=== PATIENT | female | born 1960 | race Caucasian/White ===

== ENCOUNTER → 2017-01-23 | Outpatient (CLI) | payer OTHER ==
[~2017-01-23] MED LIST: ESTRACE0.5 MG PO; IBUPROFEN 200200 M1 PO; PROVERA2.5 MG PO; VENTOLIN HFA 1818 GM INH
== END ==
LOC: RAD 01:33
DX: Z12.31 Encounter for screening mammogram for malignant neoplasm of breast (principal)

== ENCOUNTER → 2017-02-01 | Outpatient (CLI) | payer OTHER | LOC: ULTRA 09:52 | DX: N60.02 Solitary cyst of left breast (principal) ==

== ENCOUNTER → 2018-04-24 | Outpatient (CLI) | payer OTHER | LOC: RAD 04-18 01:23 | DX: Z12.31 Encounter for screening mammogram for malignant neoplasm of breast (principal) ==

== ENCOUNTER → 2019-06-26 | Outpatient (CLI) | payer OTHER | LOC: RAD 06-24 06:28 | DX: Z12.31 Encounter for screening mammogram for malignant neoplasm of breast (principal) ==